=== PATIENT | female | born 1980 | race Caucasian/White ===

== ENCOUNTER 2019-07-05 12:03 | Emergency (ER) | payer OTHER ==
[~2019-07-05] VITALS: Ht 160 cm; Wt 82.0 kg
[~2019-07-05 12:03] MED LIST: CEPH-571 PO; METF500T3; ONDA4TAB6 PO
[2019-07-05 12:08] VITALS: BP 162/66
[2019-07-05] MEDS ORDERED: SULF1TAB49 PO (12:42)
== END 2019-07-05 12:57 | disposition home or self-care (01) ==
LOC: ER 12:03
DX: L02.415 Cutaneous abscess of right lower limb (principal); E11.9 Type 2 diabetes mellitus without complications; F12.90 Cannabis use, unspecified, uncomplicated; Z98.51 Tubal ligation status; Z98.890 Other specified postprocedural states; Z79.2 Long term (current) use of antibiotics; Z79.899 Other long term (current) drug therapy
CPT/HCPCS: 87070; 87077; 87186; 99283

== ENCOUNTER 2019-07-24 21:34 | Emergency (ER) | payer OTHER ==
[~2019-07-24] VITALS: Ht 160 cm; Wt 84.1 kg
[2019-07-24] MEDS ORDERED: dextrose 50%-water 50ml dispensing syringe IV ONE (22:01)
[2019-07-24 22:06] LABS: BASOPHILS # (AUTO) 0.1 X10'3 (0-0.2); BASOPHILS % (AUTO) 0.8 % (0-1); EOSINOPHILS # (AUTO) 0.1 X10'3 (0-0.9); EOSINOPHILS % (AUTO) 0.4 % (0-6); HEMATOCRIT 43.1 % (35.0-45.0); HEMOGLOBIN 14.5 g/dl (12.0-16.0); LYMPHOCYTES # (AUTO) 5.6 X10'3 (1.1-4.8); LYMPHOCYTES % (AUTO) 32.4 % (21-51); MEAN CORPUSCULAR HEMOGLOBIN 28.8 PG (27.0-31.0); MEAN CORPUSCULAR HGB CONC 33.6 g/dL (33.0-36.5); MEAN CORPUSCULAR VOLUME 85.8 FL (78-98); MEAN PLATELET VOLUME 7.6 FL (7.4-10.4); MONOCYTES # (AUTO) 1.1 X10'3 (0-0.9); MONOCYTES % (AUTO) 6.5 % (2-12); NEUTROPHILS # (AUTO) 10.4 X10'3 (1.8-7.7); NEUTROPHILS % (AUTO) 59.9 % (42-75); PLATELET COUNT 537 X10'3 (140-440); RED BLOOD COUNT 5.02 X10'6 (4.20-5.60); RED CELL DISTRIBUTION WIDTH 14.4 % (11.5-14.5); WHITE BLOOD COUNT 17.4 X10'3 (4.5-11.0)
[2019-07-24 22:16] LABS: ALANINE AMINOTRANSFERASE 32 U/L (12-78); ALBUMIN 3.9 G/DL (3.4-5.0); ALBUMIN/GLOBULIN RATIO 0.8 (1.1-1.5); ALKALINE PHOSPHATASE 73 IU/L (46-116); ANION GAP 15 (8-16); ASPARTATE AMINO TRANSFERASE 12 U/L (10-37); BILIRUBIN,TOTAL 0.1 MG/DL (0.1-1.0); BLOOD UREA NITROGEN 10 MG/DL (7-18); BUN/CREATININE RATIO 11.9 (6.6-38.0); CALCIUM 9.2 MG/DL (8.5-10.1); CHLORIDE 103 MMOL/L (99-107); CREATININE 0.84 MG/DL (0.40-0.90); GLUCOSE 60 MG/DL (70-104); POTASSIUM 3.4 MMOL/L (3.5-5.1); SODIUM 141 MMOL/L (135-145); TOTAL PROTEIN 8.5 G/DL (6.4-8.2); eGFR 75 ML/MIN
[2019-07-24 22:25] LABS: ETHANOL 0.109 GM/DL (0.0-0.010)
--- NOTE | 2019-07-24 22:39 | NUR ---
pt states she cannot urinate at this time
[2019-07-24] MEDS ORDERED: potassium Cl 20 mEq SR tablet PO ONE (23:55)
[2019-07-24] MEDS ORDERED: magnesium oxide 400mg tablet PO ONE (23:55)
[2019-07-24 23:57] LABS: URINE HCG NEGATIVE (NEG)
[2019-07-24 23:58] LABS: CLARITY,URINE CLEAR (Clear); COLOR,URINE YELLOW (Yellow); GLUCOSE, URINE >=1000 mg/dl (Neg); KETONES,URINE NEGATIVE (Neg); LEUKOCYTE ESTERASE ,URINE NEGATIVE (Neg); NITRITES, URINE NEGATIVE (Neg); OCCULT BLOOD,URINE NEGATIVE (Neg); PH,URINE 5.5 (4.8-8.0); PROTEIN,URINE NEGATIVE (Neg); UROBILINOGEN,URINE 0.2 E.U/dL (0.2-1.0)
[2019-07-25 00:06] LABS: UA COLLECTION TYPE NON-SPECIFIED
[2019-07-25 00:07] LABS: BACTERIA,URINE FEW /HPF (Neg); RBC,URINE 0 /HPF (0-2); SQUAMOUS EPITHELIAL CELL,UR MODERATE /LPF (FEW); WBC,URINE 0-4 /HPF (0-4)
[2019-07-25 00:17] LABS: URINE AMPHETAMINE SCREEN NEGATIVE (Neg); URINE BARBITUATE SCREEN NEGATIVE (Neg); URINE BENZODIAZEPINES SCREEN NEGATIVE (Neg); URINE CANNABINOID SCREEN POSITIVE (Neg); URINE COCAINE SCREEN NEGATIVE (Neg); URINE METHADONE SCREEN NEGATIVE (Neg); URINE OPIATE SCREEN NEGATIVE (Neg); URINE PHENCYCLIDINE SCREEN NEGATIVE (Neg)
--- NOTE | 2019-07-25 00:56 | NUR ---
The patient was transferred to bed 22 from the main ER. THe patient was made aware of the plan of care and that she currently is on a psychiatric hold in the ER. She was made aware that she would be evaluated in the morning by [facility]. THe patient is frustrated with being held overnight in the ER. She was hoping to go home. She stated that she took the insulin impulsively during an arguement with her . She denies that she has ever had a prior suicide attempt. She denies that she has been feeling depressed. She denies problems with her appetite. She denies anxiety. She stated that she has been 20 years and this is her first marriage. She has a PIV in her left AC which will be left in for at least the night.
--- NOTE | 2019-07-25 01:23 | NUR ---
Packet faxed to [facility]. Unable to confirm receipt of packet as [id number] hours.
--- NOTE | 2019-07-25 04:19 | NUR ---
The patient appears to be sleeping well. She has been very cooperative with the rechecks of her blood glucose
[2019-07-25 05:45] VITALS: BP 123/54
--- NOTE | 2019-07-25 07:00 | NUR ---
Received pt asleep in bed. Pt awoke and was cooperative with am assessment. Pt denies S.I. and states she wants to go home.
--- NOTE | 2019-07-25 09:00 | NUR ---
Pt resting quietly in bed without complaints.
--- NOTE | 2019-07-25 11:00 | NUR ---
Pt sitting quietly on her bed awaiting to be seen by [facility]. Pt relays desire to want to go home, but she is calm and cooperative.
== END 2019-07-25 12:17 | disposition home or self-care (01) ==
LOC: ER 21:34
DX: T38.3X2A Poisoning by insulin and oral hypoglycemic [antidiabetic] drugs, intentional self-harm, initial encounter (principal); E11.649 Type 2 diabetes mellitus with hypoglycemia without coma; R45.851 Suicidal ideations; F17.210 Nicotine dependence, cigarettes, uncomplicated; F12.90 Cannabis use, unspecified, uncomplicated; Z79.2 Long term (current) use of antibiotics; Z79.84 Long term (current) use of oral hypoglycemic drugs; Z79.899 Other long term (current) drug therapy; Z98.51 Tubal ligation status; Z98.890 Other specified postprocedural states; Y92.89 Other specified places as the place of occurrence of the external cause
CPT/HCPCS: 36415; 80053; 80305; 80320; 81001; 81003; 81025; 82948; 84443; 85025; 96374; 99284

== ENCOUNTER → 2023-03-28 | Emergency (ER) | payer OTHER ==
[~2023-03-28] VITALS: Ht 160 cm; Wt 77.0 kg
[~2023-03-28] MED LIST changes: +CLIN-97 PO; +HYDR-3965 PO; +HYDROcodone/acetaminophen 10/325mg tab PO ONE; +SULF1TAB45 PO; +TETanus/Pertussis (Acell)/Diphther VAC/PF (Tdap-Adult) 0.5ml syringe IMVAC ONE; +clindamycin 150mg capsule PO STA; +clindamycin phosphate 150mg/ml inj. IM ONE
[2023-03-28 07:51] VITALS: BP 161/71
--- NOTE | 2023-03-28 09:04 | NUR ---
s/p I&D of the left lower buttock performed at bedside by Dr. Peres assisted by RADHA Cowan
--- NOTE | 2023-03-28 09:17 | NUR ---
Patient cannot assure me that she has someone to drive her home if I gave her [place]. Pt states "I need it, I can just drive home it's not that far! I told patient that I am not comfortable giving her [place] and then she drives as I will be the one responsbile for that. I also talked to my charge nurse Radha about this. She agreed about my decision to not give [place] if patient will drive. I offered patient Tylenol or any non-narcotic drug. Patient refused Tylenol or any non-narcotic pain medicine before she leave. I told patient that she has a written script for [place]. Patient agreed she will just take [place] when she gets home.
--- NOTE | 2023-03-28 09:22 | NUR ---
Clindamycin IM unavailable per pharmacy,received a verbal order for Clindamycin 300mg po from Dr. Peres.
== END | disposition home or self-care (01) ==
LOC: ER 07:48
DX: L02.31 Cutaneous abscess of buttock (principal); E11.9 Type 2 diabetes mellitus without complications; F12.10 Cannabis abuse, uncomplicated; Z98.890 Other specified postprocedural states; Z79.899 Other long term (current) drug therapy
CPT/HCPCS: 90471; 90715; 99283

== ENCOUNTER 2023-04-01 08:10 | Emergency (ER) | payer MEDICAID, OTHER ==
[~2023-04-01] VITALS: Ht 160 cm; Wt 72.4 kg
[~2023-04-01 08:10] MED LIST changes: -HYDROcodone/acetaminophen 10/325mg tab PO ONE; -TETanus/Pertussis (Acell)/Diphther VAC/PF (Tdap-Adult) 0.5ml syringe IMVAC ONE; -clindamycin 150mg capsule PO STA; -clindamycin phosphate 150mg/ml inj. IM ONE
[2023-04-01 08:21] VITALS: BP 138/60
== END 2023-04-01 09:16 | disposition home or self-care (01) ==
LOC: ER 08:10
DX: L02.31 Cutaneous abscess of buttock (principal); Z79.899 Other long term (current) drug therapy
CPT/HCPCS: 99281; A6258

== ENCOUNTER 2024-02-10 23:10 | Emergency (ER) | payer MEDICAID, OTHER ==
[~2024-02-10] VITALS: Ht 160 cm; Wt 70.5 kg
[~2024-02-10 23:10] MED LIST changes: -HYDR-3965 PO; -SULF1TAB45 PO
[2024-02-10 23:17] VITALS: BP 142/66; PULSE 102; RESP 16; TEMP 98.1; O2SAT 100
[2024-02-11 04:02] LABS: D-DIMER < 0.19 MG/L FEU (0-0.50)
== END 2024-02-11 06:11 | disposition home or self-care (01) ==
LOC: ER 23:11
DX: M79.605 Pain in left leg (principal); E11.9 Type 2 diabetes mellitus without complications; F12.90 Cannabis use, unspecified, uncomplicated; Z79.2 Long term (current) use of antibiotics; Z98.890 Other specified postprocedural states; Z98.51 Tubal ligation status
CPT/HCPCS: 36415; 85379; 99283

== ENCOUNTER 2025-01-11 08:02 | Emergency (ER) | payer BC ==
[~2025-01-11] VITALS: Ht 160 cm; Wt 60.1 kg
[2025-01-11 08:06] VITALS: BP 153/68; PULSE 105; RESP 18; TEMP 97.6; O2SAT 100
[2025-01-11] MEDS ORDERED: METH-797 PO (08:42)
== END 2025-01-11 09:15 | disposition home or self-care (01) ==
LOC: ER 08:02
DX: M70.62 Trochanteric bursitis, left hip (principal); E11.42 Type 2 diabetes mellitus with diabetic polyneuropathy; F12.90 Cannabis use, unspecified, uncomplicated; Z98.51 Tubal ligation status; Z98.890 Other specified postprocedural states; Y93.89 Activity, other specified
CPT/HCPCS: 73502; 99283